=== PATIENT | male | born 2000 | race Two or more races ===

== ENCOUNTER 2024-04-17 09:16 | Emergency (ER) | payer OTHER ==
[~2024-04-17] VITALS: Ht 170.2 cm; Wt 72.5 kg
[2024-04-17 09:26] VITALS: BP 107/60; PULSE 64; RESP 12; O2SAT 98
[2024-04-17] MEDS ORDERED: cefTRIAXone SOD 1,000 MG VL IM ONE (11:00)
[2024-04-17] MEDS ORDERED: IBUP-1454 PO (16:19)
[2024-04-17] MEDS ORDERED: CEPH500C PO (16:19)
== END 2024-04-17 11:07 | disposition home or self-care (01) ==
LOC: ER 09:16 → EDBD 09:16 → ER 11:07
DX: S90.812A Abrasion, left foot, initial encounter (principal); V29.99XA Rider (driver) (passenger) of other motorcycle injured in unspecified traffic accident, initial encounter; Y93.89 Activity, other specified; Y92.89 Other specified places as the place of occurrence of the external cause; Y99.8 Other external cause status
CPT/HCPCS: 99281; J0696

== ENCOUNTER 2024-04-17 14:21 | Emergency (ER) | payer OTHER ==
[~2024-04-17] VITALS: Ht 170.2 cm; Wt 72.4 kg
[2024-04-17] MEDS ORDERED: IBUP-1454 PO (16:19)
[2024-04-17] MEDS ORDERED: CEPH500C PO (16:19)
[2024-04-17] MEDS: cefTRIAXone SOD 1,000 MG VL IM ONE (16:37)
[2024-04-17 16:41] VITALS: BP 115/66; PULSE 63; RESP 18; TEMP 98.4; O2SAT 95
== END 2024-04-17 16:44 | disposition home or self-care (01) ==
LOC: ER 14:21
DX: S90.812A Abrasion, left foot, initial encounter (principal); M79.672 Pain in left foot; Z79.899 Other long term (current) drug therapy; V29.99XA Rider (driver) (passenger) of other motorcycle injured in unspecified traffic accident, initial encounter; Y93.89 Activity, other specified; Y92.89 Other specified places as the place of occurrence of the external cause; Y99.8 Other external cause status
CPT/HCPCS: 73630; 96372; 99283; J0696